=== PATIENT | male | born 1935 | race Caucasian/White ===

== ENCOUNTER 2021-10-19 15:37 | Observation (INO) ==
[2021-10-19 16:47] LABS: Basophils # 0.1 K/mcL (0.0-0.2); Basophils % 0.7 %; Eosinophils # 0.5 K/mcL (0.0-0.6); Eosinophils % 5.3 %; Hematocrit 36.2 % (37.5-50.1); Hemoglobin 12.1 g/dL (12.9-16.9); Immature Granulocytes % 0.2 % (0-4); Lymphocytes # 2.6 K/mcL (0.6-4.6); Mean Corpuscular HGB Conc 33.4 g/dL (31.6-35.5); Mean Corpuscular Hemoglobin 30.2 pg (28.0-33.3); Mean Corpuscular Volume 90.3 fL (83.0-100.0); Mean Platelet Volume 9.8 fL (9.4-12.4); Monocytes # 0.9 K/mcL (0.0-1.3); Monocytes % 10.1 %; Neutrophils # 5.1 K/mcL (1.6-8.9); Platelet Count 273 K/mcL (140-400); Red Blood Count 4.01 M/mcL (4.19-5.50); Red Cell Distribution Width 12.8 % (11.5-14.5); Segmented Neutrophils % 55.7 %; White Blood Count 9.1 K/mcL (4.3-11.1)
[2021-10-19 17:08] LABS: BUN/Creatinine Ratio 14 (6-26); Blood Urea Nitrogen 13 mg/dL (8-23); Calcium 9.7 mg/dL (8.6-10.3); Carbon Dioxide 27 mEq/L (23-29); Chloride 100 mEq/L (98-107); Glucose 137 mg/dL (70-105); Osmolality,Calculated 278 (280-300); Potassium 4.4 mEq/L (3.5-5.1); Sodium 133 mEq/L (136-145); eGFR For African Americans > 60 (> 60); eGFR For Non-African Americans > 60 (> 60)
[2021-10-19] MEDS ORDERED: Isovue-370 500 ML BOTTLE IVP ONE (18:00)
[2021-10-19] MEDS ORDERED: Furosemide 40 MG/4 ML VIAL IVP ONE (20:09)
[2021-10-19] MEDS ORDERED: Aspirin 325 MG TABLET PO ONE (20:57)
[2021-10-19] MEDS ORDERED: Melatonin 3 MG TABLET PO PRN (21:23)
[2021-10-19] MEDS ORDERED: Naloxone 0.4 MG/ML INJ IVP PRN (21:23)
[2021-10-19] MEDS ORDERED: Ondansetron ODT 4 MG TAB.RAPDIS SL PRN (21:23)
[2021-10-19 21:59] LABS: INR 1.2; Prothrombin Time 13.3 Seconds (9.4-12.1)
[2021-10-19 22:01] LABS: Activated Partial Thrombo Time 35.3 Seconds (26.0-36.0)
[2021-10-19 22:02] LABS: Influenza A PCR Negative (Negative); Influenza B PCR Negative (Negative); Resp. Syncytial Virus PCR Negative (Negative)
[2021-10-19 22:05] LABS: SARS-CoV-2 by PCR (In House) Negative (Negative)
[2021-10-19] MEDS ORDERED: *HR* Dextrose 50 % in Water (Syg) 50 ML SYRINGE IVP PRN (22:29)
[2021-10-19] MEDS ORDERED: D5% in Water 1,000 ML IVC PRN (22:29)
[2021-10-19] MEDS ORDERED: Dextrose Gel 15 GM/37.5 ML TUBE PO PRN ×2 (22:29)
[2021-10-19] MEDS ORDERED: *HR* Heparin 5,000 UNIT/ML VIAL IVP ONE (22:41)
[2021-10-19] MEDS ORDERED: *HR* Heparin 5,000 UNIT/ML VIAL IVP PRN (22:41)
[2021-10-19] MEDS ORDERED: Heparin 25,000UNIT/250ML 1/2NS 25,000 UNIT/250 ML IV.SOLN IVC SCH (22:45)
[2021-10-20 01:46] LABS: Hematocrit 35.5 % (37.5-50.1); Hemoglobin 12.3 g/dL (12.9-16.9); Mean Corpuscular HGB Conc 34.6 g/dL (31.6-35.5); Mean Corpuscular Hemoglobin 30.7 pg (28.0-33.3); Mean Corpuscular Volume 88.5 fL (83.0-100.0); Mean Platelet Volume 10.1 fL (9.4-12.4); Platelet Count 278 K/mcL (140-400); Red Blood Count 4.01 M/mcL (4.19-5.50); Red Cell Distribution Width 12.9 % (11.5-14.5); White Blood Count 8.4 K/mcL (4.3-11.1)
[2021-10-20] MEDS: Heparin 25,000 UNIT/250 ML 25,000 UNIT/250 ML IV.SOLN IVC SCH ×2 (02:03→21:10)
[2021-10-20 04:47] LABS: INR 1.1; Prothrombin Time 12.5 Seconds (9.4-12.1)
[2021-10-20] MEDS ORDERED: Perflutren Lipid Microsphere 1.3 ML in 0.9 % Sodium Chloride 8.7 ML IVP PRN (04:56)
[2021-10-20] MEDS: Insulin LISPRO 300 UNITS/3 ML VIAL SUBQ SCH ×3 (07:05→17:14)
[2021-10-20] MEDS ORDERED: Insulin LISPRO 300 UNITS/3 ML VIAL SUBQ SCH (08:00)
[2021-10-20] MEDS ORDERED: Furosemide 20 MG/2 ML VIAL IVP SCH (09:00)
[2021-10-20] MEDS: lisinopriL 20 MG TABLET PO SCH (11:16)
[2021-10-20] MEDS ORDERED: *HR* Metoprolol 5 MG/5 ML VIAL IVP ONE (14:33)
[2021-10-20] MEDS: *HR* Heparin 5,000 UNIT/ML VIAL IVP PRN ×2 (17:10→22:50)
[2021-10-20] MEDS: Spironolactone 25 MG TABLET PO SCH (20:32)
[2021-10-20] MEDS: Insulin DETEMIR 100 UNIT/ML X5UNITS SUBQ SCH (20:46)
[2021-10-21] MEDS: Insulin LISPRO 300 UNITS/3 ML VIAL SUBQ SCH ×4 (00:27→17:51)
[2021-10-21] MEDS: Aspirin Enteric Coated 81 MG Tablet PO SCH (08:12)
[2021-10-21] MEDS: Furosemide 20 MG/2 ML VIAL IVP SCH ×2 (08:12→20:52)
[2021-10-21] MEDS: lisinopriL 20 MG TABLET PO SCH (08:12)
[2021-10-21] MEDS: Heparin 25,000 UNIT/250 ML 25,000 UNIT/250 ML IV.SOLN IVC SCH (14:27)
[2021-10-21] MEDS: carvediloL 6.25 MG TABLET PO SCH (17:50)
[2021-10-21] MEDS: Insulin DETEMIR 100 UNIT/ML X5UNITS SUBQ SCH (20:53)
[2021-10-21] MEDS: Spironolactone 25 MG TABLET PO SCH (20:53)
[2021-10-22] MEDS: Heparin 25,000 UNIT/250 ML 25,000 UNIT/250 ML IV.SOLN IVC SCH (02:18)
[2021-10-22 04:47] LABS: BUN/Creatinine Ratio 20 (6-26); Blood Urea Nitrogen 20 mg/dL (8-23); Carbon Dioxide 23 mEq/L (23-29); Chloride 103 mEq/L (98-107); Glucose 187 mg/dL (70-105); Magnesium 2.1 mg/dL (1.6-2.6); Osmolality,Calculated 288 (280-300); Phosphorous 3.5 mg/dL (2.7-4.5); Potassium 4.1 mEq/L (3.5-5.1); Sodium 135 mEq/L (136-145); eGFR For African Americans > 60 (> 60); eGFR For Non-African Americans > 60 (> 60)
[2021-10-22 07:46] VITALS: BP 177/78; PULSE 53; TEMP 98.4; O2SAT 99
[2021-10-22] MEDS: Insulin LISPRO 300 UNITS/3 ML VIAL SUBQ SCH (08:16)
[2021-10-22] MEDS: lisinopriL 20 MG TABLET PO SCH (08:16)
[2021-10-22] MEDS: Aspirin Enteric Coated 81 MG Tablet PO SCH (08:16)
[2021-10-22] MEDS: carvediloL 6.25 MG TABLET PO SCH (08:16)
[2021-10-22] MEDS: Furosemide 20 MG/2 ML VIAL IVP SCH (08:48)
== END 2021-10-22 12:02 | disposition home or self-care (01) ==
LOC: 2ANU 15:37 → EMEROOARM 15:37 → SUATTDRO 21:07 → 2ANU 21:37
PROVIDERS: ADMIT Internal Medicine; ATTEND Internal Medicine

== ENCOUNTER 2022-07-28 22:02 | Inpatient (IN) ==
[2022-07-28] MEDS ORDERED: Iopamidol - 370 500 ML MLS IVP ONE (23:11)
[2022-07-28 23:48] LABS: VBG HCO3 22 mEq/L (21-27); VBG PCO2 38 mmHg (41-51); VBG PH 7.38 pH Units (7.32-7.42); VBG PO2 48 mmHg (25-50)
[2022-07-29 00:08] LABS: Potassium 4.1 mEq/L (3.5-5.1)
[2022-07-29 00:11] LABS: Troponin I 0.04 ng/mL (< 0.04)
[2022-07-29 00:12] LABS: INR 1.3; Prothrombin Time 14.1 Seconds (9.4-12.1)
[2022-07-29 00:13] LABS: Hematocrit 35.6 % (37.5-50.1); Hemoglobin 12.3 g/dL (12.9-16.9); Mean Corpuscular HGB Conc 34.6 g/dL (31.6-35.5); Mean Corpuscular Hemoglobin 30.1 pg (28.0-33.3); Mean Corpuscular Volume 87.3 fL (83.0-100.0); Mean Platelet Volume 10.3 fL (9.4-12.4); Platelet Count 198 K/mcL (140-400); Red Blood Count 4.08 M/mcL (4.19-5.50); Red Cell Distribution Width 12.9 % (11.5-14.5)
[2022-07-29 00:25] LABS: Bilirubin,Urine Negative (Negative); Blood,Urine Negative (Negative); Clarity,Urine Clear (Clear); Color,Urine Light-Yellow (Yellow); Glucose,Urine (UA) 50 mg/dL (Normal); Hyaline Casts,Urine Few per lpf (None Seen); Ketones,Urine Negative (Negative); Leukocyte Esterase,Urine Negative (Negative); Mucus,Urine Few per lpf (None-Few); Nitrite,Urine Negative (Negative); Protein,Urine Trace mg/dL (Neg-Trace); RBC,Urine 0-3 per hpf (0-3); Specific Gravity,Urine 1.017 (1.010-1.025); Squamous Epithelial Cell,Urine Few per hpf (None-Few); Urobilinogen,Urine Normal (Normal); WBC,Urine 0-3 per hpf (0-3)
[2022-07-29 00:51] LABS: Eosinophils # 0.1 K/mcL (0.0-0.6); Lymphocytes # 1.4 K/mcL (0.6-4.6); Neutrophils # 3.4 K/mcL (1.6-8.9); Platelet Estimate Normal (Normal)
[2022-07-29] MEDS ORDERED: Aspirin 81 MG TAB.CHEW PO ONE (01:23)
[2022-07-29] MEDS ORDERED: 0.9 % Sodium Chloride 500 ML IVC ONE (02:45)
[2022-07-29] MEDS ORDERED: Acetaminophen 325 MG TABLET PO PRN (03:08)
[2022-07-29] MEDS ORDERED: Ondansetron 4 MG/2 ML VIAL IVP PRN (03:08)
[2022-07-29] MEDS ORDERED: Naloxone 0.4 MG/ML INJ IVP PRN (03:08)
[2022-07-29] MEDS ORDERED: *HR* Dextrose 50 % in Water (Syg) 50 ML SYRINGE IVP PRN (03:15)
[2022-07-29] MEDS ORDERED: Dextrose Gel 15 GM/37.5 ML TUBE PO PRN ×2 (03:15)
[2022-07-29] MEDS ORDERED: D5% in Water 1,000 ML IVC PRN (03:15)
[2022-07-29 03:56] LABS: Influenza A PCR Negative (Negative); Influenza B PCR Negative (Negative); Resp. Syncytial Virus PCR Negative (Negative)
[2022-07-29 04:12] LABS: SARS-CoV-2 by PCR (In House) Positive (Negative)
[2022-07-29 06:17] LABS: Alanine Aminotransferase 56 Units/L (7-52); Albumin 3.9 g/dL (3.5-5.7); Albumin/Globulin Ratio 1.5 (1.1-2.2); Alkaline Phosphatase 52 Units/L (34-104); Aspartate Amino Transferase 62 Units/L (13-39); BUN/Creatinine Ratio 16 (6-26); Bilirubin,Direct 0.1 mg/dL (0.0-0.2); Bilirubin,Indirect 0.3 mg/dL (0.0-1.0); Bilirubin,Total 0.4 mg/dL (0.3-1.0); Blood Urea Nitrogen 17 mg/dL (8-23); Calcium 8.5 mg/dL (8.6-10.3); Carbon Dioxide 22 mEq/L (23-29); Chloride 98 mEq/L (98-107); Globulin 2.6 g/dL (2.4-3.5); Glucose 85 mg/dL (70-105); Osmolality,Calculated 263 (280-300); Sodium 126 mEq/L (136-145); Total Protein 6.5 g/dL (6.4-8.9)
[2022-07-29] MEDS: Insulin LISPRO 300 UNITS/3 ML VIAL SUBQ SCH ×3 (07:32→17:14)
[2022-07-29 08:22] LABS: C-Reactive Protein < 5 mg/L (Less than 10)
[2022-07-29 13:52] LABS: Calcium 8.9 mg/dL (8.6-10.3); Potassium 4.3 mEq/L (3.5-5.1)
[2022-07-29] MEDS ORDERED: Chloraseptic Spray 177 ML BOTTLE MM PRN (14:30)
[2022-07-30 04:47] LABS: Basophils % 0.2 %; Eosinophils # 0.2 K/mcL (0.0-0.6); Hematocrit 35.1 % (37.5-50.1); Hemoglobin 12.1 g/dL (12.9-16.9); Immature Granulocytes % 0.5 % (0-4); Lymphocytes % 23.6 %; Mean Corpuscular HGB Conc 34.5 g/dL (31.6-35.5); Mean Corpuscular Hemoglobin 29.7 pg (28.0-33.3); Mean Platelet Volume 10.2 fL (9.4-12.4); Monocytes # 1.2 K/mcL (0.0-1.3); Monocytes % 14.2 %; Neutrophils # 4.9 K/mcL (1.6-8.9); Platelet Count 193 K/mcL (140-400); Red Blood Count 4.08 M/mcL (4.19-5.50); Red Cell Distribution Width 12.6 % (11.5-14.5); Segmented Neutrophils % 59.5 %; White Blood Count 8.3 K/mcL (4.3-11.1)
[2022-07-30 05:08] LABS: Calcium 8.8 mg/dL (8.6-10.3); Magnesium 1.7 mg/dL (1.6-2.6); Potassium 4.2 mEq/L (3.5-5.1)
[2022-07-30] MEDS: carvediloL 6.25 MG TABLET PO SCH ×2 (08:48→17:06)
[2022-07-30] MEDS: Aspirin Enteric Coated 81 MG Tablet PO SCH (08:48)
[2022-07-30] MEDS: Insulin LISPRO 300 UNITS/3 ML VIAL SUBQ SCH ×3 (08:58→16:49)
[2022-07-30] MEDS ORDERED: *HR* Metformin 500 MG TABLET PO SCH (09:00)
[2022-07-30] MEDS ORDERED: *HR* Glimepiride 4 MG TABLET PO SCH (09:00)
[2022-07-30] MEDS ORDERED: Furosemide 20 MG TABLET PO SCH (09:00)
[2022-07-30] MEDS ORDERED: lisinopriL 20 MG TABLET PO SCH (09:00)
[2022-07-30 10:12] LABS: Bilirubin,Urine Negative (Negative); Blood,Urine Trace (Negative); Clarity,Urine Clear (Clear); Color,Urine Light-Yellow (Yellow); Glucose,Urine (UA) >=1000 mg/dL (Normal); Ketones,Urine 10 mg/dL (Negative); Leukocyte Esterase,Urine Negative (Negative); Nitrite,Urine Negative (Negative); Protein,Urine 50 mg/dL (Neg-Trace); RBC,Urine 0-3 per hpf (0-3); Specific Gravity,Urine 1.021 (1.010-1.025); Urobilinogen,Urine Normal (Normal); WBC,Urine 0-3 per hpf (0-3)
[2022-07-30 15:47] LABS: Potassium 4.3 mEq/L (3.5-5.1)
[2022-07-30] MEDS ORDERED: NON-FORMULARY MEDICATION 1 EACH EACH (Carvedilol [Carvedilol] 3.125 MG Tablet) PO SCH (21:00)
[2022-07-30] MEDS ORDERED: Spironolactone 12.5 MG TABLET PO SCH (21:00)
[2022-07-31 05:23] LABS: Calcium 8.8 mg/dL (8.6-10.3); Potassium 4.3 mEq/L (3.5-5.1)
[2022-07-31 05:27] LABS: Thyroid Stimulating Hormone 3.356 mcIU/mL (0.340-5.600)
[2022-07-31] MEDS: *HR* Enoxaparin 40 MG/0.4 ML SYRINGE SQ SCH (06:08)
[2022-07-31] MEDS: Insulin LISPRO 300 UNITS/3 ML VIAL SUBQ SCH ×3 (08:57→19:06)
[2022-07-31] MEDS: Aspirin Enteric Coated 81 MG Tablet PO SCH (08:58)
[2022-07-31] MEDS: carvediloL 6.25 MG TABLET PO SCH ×2 (08:58→19:07)
[2022-07-31] MEDS: amLODIPine 5 MG TABLET PO SCH (12:20)
[2022-07-31 12:41] LABS: Calcium 8.1 mg/dL (8.6-10.3); Potassium 4.4 mEq/L (3.5-5.1)
[2022-07-31] MEDS ORDERED: Lidocaine -MPF 1% 5 ML AMPUL INFILT ONE (12:50)
[2022-07-31 15:02] LABS: Calcium 7.9 mg/dL (8.6-10.3); Potassium 4.1 mEq/L (3.5-5.1)
[2022-07-31 16:54] LABS: Calcium 7.9 mg/dL (8.6-10.3); Potassium 4.4 mEq/L (3.5-5.1)
[2022-07-31 18:48] LABS: Calcium 7.7 mg/dL (8.6-10.3); Potassium 4.3 mEq/L (3.5-5.1)
[2022-07-31] MEDS ORDERED: *HR* 3% Sodium Chloride 500 ML IV.SOLN IVC SCH (20:00)
[2022-07-31 21:04] LABS: VBG Ionized Calcium 0.99 mmol/L (1.15-1.35)
[2022-07-31 21:24] LABS: Calcium 7.6 mg/dL (8.6-10.3); Potassium 4.1 mEq/L (3.5-5.1)
[2022-07-31 22:20] LABS: Magnesium 1.6 mg/dL (1.6-2.6)
[2022-07-31] MEDS: Calcium Gluconate 1gm/50mL 1 GM/50 ML BAG IVPB PRN (22:38)
[2022-07-31 23:26] LABS: Calcium 7.4 mg/dL (8.6-10.3); Potassium 3.8 mEq/L (3.5-5.1)
[2022-08-01 01:39] LABS: Calcium 7.9 mg/dL (8.6-10.3); Potassium 3.8 mEq/L (3.5-5.1)
[2022-08-01 03:56] LABS: VBG Ionized Calcium 1.03 mmol/L (1.15-1.35)
[2022-08-01 03:57] LABS: Basophils % 0.3 %; Eosinophils # 0.2 K/mcL (0.0-0.6); Eosinophils % 2.2 %; Hematocrit 30.2 % (37.5-50.1); Hemoglobin 10.8 g/dL (12.9-16.9); Immature Granulocytes % 0.5 % (0-4); Lymphocytes # 1.8 K/mcL (0.6-4.6); Lymphocytes % 23.5 %; Mean Corpuscular HGB Conc 35.8 g/dL (31.6-35.5); Mean Corpuscular Hemoglobin 29.7 pg (28.0-33.3); Monocytes # 0.6 K/mcL (0.0-1.3); Monocytes % 8.2 %; Platelet Count 174 K/mcL (140-400); Red Blood Count 3.64 M/mcL (4.19-5.50); Red Cell Distribution Width 12.5 % (11.5-14.5); Segmented Neutrophils % 65.3 %; White Blood Count 7.7 K/mcL (4.3-11.1)
[2022-08-01 04:18] LABS: Calcium 8.1 mg/dL (8.6-10.3); Phosphorous 2.4 mg/dL (2.7-4.5); Potassium 4.1 mEq/L (3.5-5.1)
[2022-08-01] MEDS: *HR* Enoxaparin 40 MG/0.4 ML SYRINGE SQ SCH (05:22)
[2022-08-01 06:07] LABS: Calcium 8.1 mg/dL (8.6-10.3); Potassium 4.1 mEq/L (3.5-5.1)
[2022-08-01] MEDS ORDERED: Calcium Gluconate 1gm/50mL 1 GM/50 ML BAG IVPB PRN (07:51)
[2022-08-01] MEDS: amLODIPine 5 MG TABLET PO SCH (07:59)
[2022-08-01] MEDS: carvediloL 6.25 MG TABLET PO SCH ×2 (08:00→16:37)
[2022-08-01] MEDS: Aspirin Enteric Coated 81 MG Tablet PO SCH (08:00)
[2022-08-01] MEDS: Calcium Gluconate 1gm/50mL 1 GM/50 ML BAG IVPB PRN (08:02)
[2022-08-01 08:42] LABS: Basophils % 0.3 %; Eosinophils # 0.1 K/mcL (0.0-0.6); Eosinophils % 1.6 %; Hematocrit 29.4 % (37.5-50.1); Hemoglobin 10.7 g/dL (12.9-16.9); Immature Granulocytes % 0.4 % (0-4); Lymphocytes # 1.4 K/mcL (0.6-4.6); Lymphocytes % 19.2 %; Mean Corpuscular HGB Conc 36.4 g/dL (31.6-35.5); Mean Corpuscular Volume 82.4 fL (83.0-100.0); Monocytes # 0.7 K/mcL (0.0-1.3); Monocytes % 9.2 %; Neutrophils # 5.1 K/mcL (1.6-8.9); Platelet Count 179 K/mcL (140-400); Red Blood Count 3.57 M/mcL (4.19-5.50); Red Cell Distribution Width 12.6 % (11.5-14.5); Segmented Neutrophils % 69.3 %; White Blood Count 7.3 K/mcL (4.3-11.1)
[2022-08-01] MEDS: Insulin LISPRO 300 UNITS/3 ML VIAL SUBQ SCH ×3 (08:50→16:37)
[2022-08-01 09:14] LABS: Calcium 8.2 mg/dL (8.6-10.3)
[2022-08-01 12:27] LABS: Bacteria,Urine Few per hpf (None-Few); Bilirubin,Urine Negative (Negative); Blood,Urine Large (Negative); Clarity,Urine Turbid (Clear); Color,Urine Light-Brown (Yellow); Glucose,Urine (UA) 200 mg/dL (Normal); Ketones,Urine Trace mg/dL (Negative); Leukocyte Esterase,Urine Trace (Negative); Nitrite,Urine Negative (Negative); PH,Urine 6.5 pH Units (5.0-8.0); Protein,Urine 70 mg/dL (Neg-Trace); RBC,Urine TNTC per hpf (0-3); Specific Gravity,Urine 1.009 (1.010-1.025); Squamous Epithelial Cell,Urine Few per hpf (None-Few); Urobilinogen,Urine Normal (Normal)
[2022-08-01 13:10] LABS: Calcium 8.4 mg/dL (8.6-10.3); Potassium 4.3 mEq/L (3.5-5.1)
[2022-08-01 13:47] LABS: Calcium 8.1 mg/dL (8.6-10.3); Potassium 4.3 mEq/L (3.5-5.1)
[2022-08-01] MEDS ORDERED: Tolvaptan 15 MG TABLET PO ONE (15:00)
[2022-08-01 17:03] LABS: Potassium 4.2 mEq/L (3.5-5.1)
[2022-08-01 19:13] LABS: Calcium 8.1 mg/dL (8.6-10.3); Potassium 4.4 mEq/L (3.5-5.1)
[2022-08-01 22:18] LABS: Calcium 7.8 mg/dL (8.6-10.3)
[2022-08-02 00:31] LABS: Potassium 4.1 mEq/L (3.5-5.1)
[2022-08-02 03:59] LABS: VBG Ionized Calcium 1.01 mmol/L (1.15-1.35)
[2022-08-02 04:03] LABS: Basophils % 0.5 %; Eosinophils # 0.2 K/mcL (0.0-0.6); Eosinophils % 3.5 %; Hematocrit 29.1 % (37.5-50.1); Hemoglobin 10.3 g/dL (12.9-16.9); Immature Granulocytes % 0.3 % (0-4); Lymphocytes # 1.5 K/mcL (0.6-4.6); Lymphocytes % 25.9 %; Mean Corpuscular HGB Conc 35.4 g/dL (31.6-35.5); Mean Corpuscular Volume 84.8 fL (83.0-100.0); Mean Platelet Volume 10.5 fL (9.4-12.4); Monocytes # 0.6 K/mcL (0.0-1.3); Monocytes % 10.2 %; Neutrophils # 3.4 K/mcL (1.6-8.9); Platelet Count 177 K/mcL (140-400); Red Blood Count 3.43 M/mcL (4.19-5.50); Red Cell Distribution Width 12.8 % (11.5-14.5); Segmented Neutrophils % 59.6 %; White Blood Count 5.8 K/mcL (4.3-11.1)
[2022-08-02 04:20] LABS: Magnesium 1.9 mg/dL (1.6-2.6); Phosphorous 2.9 mg/dL (2.7-4.5); Potassium 3.8 mEq/L (3.5-5.1)
[2022-08-02] MEDS: *HR* Enoxaparin 40 MG/0.4 ML SYRINGE SQ SCH (06:16)
[2022-08-02] MEDS: Insulin LISPRO 300 UNITS/3 ML VIAL SUBQ SCH ×3 (08:35→16:46)
[2022-08-02] MEDS: carvediloL 6.25 MG TABLET PO SCH ×2 (08:35→17:42)
[2022-08-02] MEDS: Aspirin Enteric Coated 81 MG Tablet PO SCH (08:36)
[2022-08-02] MEDS: amLODIPine 5 MG TABLET PO SCH (08:36)
[2022-08-02 17:40] LABS: Albumin 3.4 g/dL (3.5-5.7); Albumin/Globulin Ratio 1.3 (1.1-2.2); Bilirubin,Direct 0.3 mg/dL (0.0-0.2); Bilirubin,Indirect 0.6 mg/dL (0.0-1.0); Bilirubin,Total 0.9 mg/dL (0.3-1.0); Calcium 8.1 mg/dL (8.6-10.3); Globulin 2.7 g/dL (2.4-3.5); Potassium 4.5 mEq/L (3.5-5.1); Total Protein 6.1 g/dL (6.4-8.9)
[2022-08-02 23:26] LABS: Calcium 8.1 mg/dL (8.6-10.3); Potassium 4.7 mEq/L (3.5-5.1)
[2022-08-03 03:52] LABS: Basophils % 0.5 %; Eosinophils # 0.2 K/mcL (0.0-0.6); Eosinophils % 3.1 %; Hematocrit 29.1 % (37.5-50.1); Hemoglobin 10.3 g/dL (12.9-16.9); Immature Granulocytes % 0.8 % (0-4); Lymphocytes # 1.3 K/mcL (0.6-4.6); Lymphocytes % 20.3 %; Mean Corpuscular HGB Conc 35.4 g/dL (31.6-35.5); Mean Corpuscular Volume 84.8 fL (83.0-100.0); Mean Platelet Volume 10.3 fL (9.4-12.4); Monocytes % 11.7 %; Platelet Count 207 K/mcL (140-400); Red Blood Count 3.43 M/mcL (4.19-5.50); Red Cell Distribution Width 12.9 % (11.5-14.5); Segmented Neutrophils % 63.6 %; White Blood Count 6.4 K/mcL (4.3-11.1)
[2022-08-03 04:00] LABS: Monocytes # 0.8 K/mcL (0.0-1.3); Neutrophils # 4.1 K/mcL (1.6-8.9)
[2022-08-03 04:23] LABS: Albumin 3.5 g/dL (3.5-5.7); Albumin/Globulin Ratio 1.3 (1.1-2.2); Bilirubin,Direct 0.4 mg/dL (0.0-0.2); Bilirubin,Indirect 0.5 mg/dL (0.0-1.0); Bilirubin,Total 0.9 mg/dL (0.3-1.0); Calcium 8.2 mg/dL (8.6-10.3); Globulin 2.8 g/dL (2.4-3.5); Magnesium 2.7 mg/dL (1.6-2.6); Phosphorous 3.3 mg/dL (2.7-4.5); Potassium 4.5 mEq/L (3.5-5.1); Total Protein 6.3 g/dL (6.4-8.9)
[2022-08-03] MEDS: *HR* Enoxaparin 40 MG/0.4 ML SYRINGE SQ SCH (05:35)
[2022-08-03 06:40] LABS: Platelet Estimate Normal (Normal)
[2022-08-03] MEDS ORDERED: carvediloL 6.25 MG TABLET PO SCH (08:00)
[2022-08-03] MEDS: Insulin LISPRO 300 UNITS/3 ML VIAL SUBQ SCH ×2 (09:51→12:53)
[2022-08-03] MEDS: amLODIPine 5 MG TABLET PO SCH (09:52)
[2022-08-03] MEDS: Aspirin Enteric Coated 81 MG Tablet PO SCH (09:52)
[2022-08-03 11:22] VITALS: BP 146/55; PULSE 56; TEMP 98.2; O2SAT 98
[2022-08-03] MEDS ORDERED: amLODIPine 5 MG TABLET PO SCH (14:30)
== END 2022-08-03 14:19 | disposition home or self-care (01) | DRG 177 ==
LOC: EMEROOARM 22:02 → 3ANU 22:02 → ICNU 07-31 16:06 → 2NENU 08-02 17:20
PROVIDERS: ADMIT Student in an Organized Health Care Education/Training Program; ATTEND Student in an Organized Health Care Education/Training Program